=== PATIENT | male | born 1995 ===

== ENCOUNTER 2020-05-09 14:54 | Emergency (ER) | payer SELFPAY | END 2020-05-09 15:27 | disposition home or self-care (01) | LOC: ERS 14:54 | DX: F15.90 Other stimulant use, unspecified, uncomplicated (principal); F11.90 Opioid use, unspecified, uncomplicated; F13.90 Sedative, hypnotic, or anxiolytic use, unspecified, uncomplicated; F31.9 Bipolar disorder, unspecified; F17.210 Nicotine dependence, cigarettes, uncomplicated | CPT/HCPCS: 99281 ==